=== PATIENT | female | born 1990 | race Two or more races ===

== ENCOUNTER 2023-01-19 21:31 | Emergency (ER) | payer MEDICAID, OTHER ==
[~2023-01-19] VITALS: Ht 165.1 cm; Wt 86.4 kg
[2023-01-19] MEDS ORDERED: LIDOCAINE 1% HCL (LOCAL ANESTH.) INJ 20ML MDV ONE (23:57)
[2023-01-20] MEDS ORDERED: TETANUS-DIPTH-ACEL PERTUSSIS 0.5ML SYR Tdap IM ONE
[2023-01-20] MEDS ORDERED: LIDOCAINE 1% (LOCAL ANESTH.) PF 5ml SDV ID ONE
[2023-01-20] MEDS ORDERED: CEPH250C PO (00:23)
[2023-01-20] MEDS ORDERED: NAPR-1334 PO (00:23)
[2023-01-20 00:59] VITALS: BP 158/97; PULSE 78; RESP 18; TEMP 99; O2SAT 98
== END 2023-01-20 01:02 | disposition home or self-care (01) ==
LOC: ER 21:31
DX: S61.212A Laceration without foreign body of right middle finger without damage to nail, initial encounter (principal); W26.8XXA Contact with other sharp object(s), not elsewhere classified, initial encounter; Y93.89 Activity, other specified; Y92.89 Other specified places as the place of occurrence of the external cause; Y99.8 Other external cause status
CPT/HCPCS: 12002; 73120; 90471; 90715; 99283; J2001

== ENCOUNTER 2023-04-02 16:57 | Emergency (ER) | payer MEDICAID ==
[~2023-04-02] VITALS: Ht 165.1 cm; Wt 86.6 kg
[~2023-04-02 16:57] MED LIST: CEPH250C PO; NAPR-1334 PO
[2023-04-02 18:37] VITALS: BP 129/85; PULSE 81; RESP 18; TEMP 98.2; O2SAT 99
[2023-04-02] MEDS ORDERED: HYDR4CRE35 PR (19:31)
== END 2023-04-02 19:55 | disposition home or self-care (01) ==
LOC: ER 16:57
DX: R21 Rash and other nonspecific skin eruption (principal); Z79.899 Other long term (current) drug therapy